=== PATIENT | male | born 1970 | race African-American/Black ===

== ENCOUNTER 2019-09-23 08:51 | Inpatient (IN) | payer MEDICAID ==
[~2019-09-23] VITALS: Ht 167.6 cm; Wt 94.7 kg
[2019-09-23 09:15] LABS: BASOPHILS 0.3 % (0-2); EOSINOPHILS 1.1 % (0-7); HEMATOCRIT 46.7 % (42.0-54.0); HEMOGLOBIN 15.7 g/dL (13.5-17.5); IMMATURE GRANULOCYTES 0.1 % (0-5); LYMPHOCYTES 40.4 % (15-50); MCH 31.6 pg (26.0-34.0); MCHC 33.6 g/dL (31.0-37.0); MEAN PLATELET VOLUME 10.1 fL (7.4-10.4); MONOCYTES 13.4 % (2-11); NEUTROPHILS 44.7 % (40-80); PLATELET COUNT 235 10x3/uL (130-400); RBC 4.97 10x6/uL (4.20-6.10); RDW 13.8 % (11.5-14.5); WBC 7.1 10x3/uL (4.8-10.8)
[2019-09-23 09:19] LABS: APPEARANCE CLEAR (CLEAR); BILIRUBIN NEGATIVE (NEGATIVE); COLOR YELLOW (YELLOW); GLUCOSE NEGATIVE (NEGATIVE); KETONE NEGATIVE (NEGATIVE); NITRITE NEGATIVE (NEGATIVE); PROTEIN NEGATIVE (NEGATIVE); SPECIFIC GRAVITY 1.015 (1.005-1.020); UROBILINOGEN NORMAL (NORMAL)
[2019-09-23 09:23] LABS: CALC OSMOLALITY 282 mosm/kg (275-300); CALCIUM 9.5 mg/dL (8.5-10.1); CARBON DIOXIDE 32.8 mmol/L (21.0-32.0); CHLORIDE - SERUM 105 mmol/L (98-107); GLUCOSE 109 mg/dL (74-106); POTASSIUM - SERUM 3.8 mmol/L (3.5-5.1); SODIUM 142 mmol/L (136-145); UREA NITROGEN 11 mg/dL (7-18); eGFR NON AFRICAN AMERICAN 85 mL/min (90-120)
[2019-09-23 09:32] LABS: ALBUMIN 3.7 g/dL (3.4-5.0); ALKALINE PHOSPHATASE 82 U/L (30-120); ALT (SGPT) 25 U/L (10-68); AMYLASE - SERUM 211 U/L (25-115); BILIRUBIN - TOTAL 0.63 mg/dL (0.2-1.3); PROTEIN - SERUM 7.9 g/dL (6.4-8.2)
[2019-09-23 09:33] LABS: LIPASE 1823 U/L (73-393); TROPONIN-I < 0.017 ng/mL (0.000-0.060)
--- NOTE | 2019-09-23 09:43 | NUR ---
PT VOICED SOME RELIEF FROM STOMACH PAIN S/P GI COCKTAIL.
--- NOTE | 2019-09-23 12:00 | NUR ---
ARRIVES TO ROOM VIA WHEELCHAIR FROM ER. AMBULATES TO BED. GAIT STEADY. ALERT AND ORIENTED X4. IV INFUSING ORDERED. REFUSE SCDs. UP AD MARY. CONTINUE ADMISSION PROCESS AND SAFETY PRECAUTIONS.
[2019-09-23] MEDS ORDERED: LISINOPRIL20 MG PO (12:06)
[2019-09-23 12:15] VITALS: BP 138/86; BMI 33.7
[2019-09-23 14:15] VITALS: BP 138/86
[2019-09-23 18:32] VITALS: BP 135/89
--- NOTE | 2019-09-23 19:26 | NUR ---
RECEIVED UP IN BED WITH EYES OPEN AND TV ON. ALERT AND ORIENTED X4. UP AD MARY TO B/R. IV TO RIGHT AC WITH NS AT 120CC/HR. DENIES ANY PAIN AT THIS TIME.
[2019-09-23 20:00] VITALS: BP 142/90
[2019-09-24] VITALS: BP 123/75
[2019-09-24 04:00] VITALS: BP 106/72
[2019-09-24 04:33] LABS: BASOPHILS 0.2 % (0-2); EOSINOPHILS 1.6 % (0-7); HEMOGLOBIN 13.2 g/dL (13.5-17.5); IMMATURE GRANULOCYTES 0.2 % (0-5); LYMPHOCYTES 41.4 % (15-50); MCH 31.2 pg (26.0-34.0); MCV 94.6 fL (80.0-100.0); MEAN PLATELET VOLUME 10.3 fL (7.4-10.4); MONOCYTES 14.1 % (2-11); NEUTROPHILS 42.5 % (40-80); PLATELET COUNT 207 10x3/uL (130-400); RBC 4.23 10x6/uL (4.20-6.10); RDW 13.8 % (11.5-14.5); WBC 5.6 10x3/uL (4.8-10.8)
[2019-09-24 04:45] LABS: ALBUMIN 2.8 g/dL (3.4-5.0); ALKALINE PHOSPHATASE 59 U/L (30-120); ALT (SGPT) 21 U/L (10-68); BILIRUBIN - TOTAL 0.69 mg/dL (0.2-1.3); CALC OSMOLALITY 280 mosm/kg (275-300); CALCIUM 7.8 mg/dL (8.5-10.1); CARBON DIOXIDE 27.7 mmol/L (21.0-32.0); CHLORIDE - SERUM 108 mmol/L (98-107); GLUCOSE 109 mg/dL (74-106); POTASSIUM - SERUM 4.1 mmol/L (3.5-5.1); PROTEIN - SERUM 6.1 g/dL (6.4-8.2); SODIUM 141 mmol/L (136-145); UREA NITROGEN 9 mg/dL (7-18); eGFR NON AFRICAN AMERICAN 85 mL/min (90-120)
[2019-09-24 04:46] LABS: AMYLASE - SERUM 78 U/L (25-115); LIPASE 179 U/L (73-393)
[2019-09-24 08:33] VITALS: Ht 167.6 cm; Wt 94.7 kg
[2019-09-24 09:54] VITALS: BP 138/87
[2019-09-24 13:00] VITALS: BP 139/77
[2019-09-24] MEDS ORDERED: CARAFATE1 G PO (14:07)
[2019-09-24] MEDS ORDERED: PROTONIX40 MG PO (14:07)
[2019-09-24 16:51] VITALS: BP 150/71
--- NOTE | 2019-09-24 16:59 | MORECARE ---
CASE MANAGEMENT DISCHARGE SUMMARY PATIENT: LOBO GRIFFIN UNIT: [id number] ADM DATE: 09/23/19 AGE: 49 : 74 SEX: M ROOM/BED: D.2104 AUTHOR: MARTA,DOC PHYSICIAN: REFERRING PHYSICIAN: ORIANA BHATIA MD DATE OF SERVICE: 09/24/19 Discharge Plan Patient Name: LOBO GRIFFIN Facility: [facility]:[place] : 1970 Planned Disposition: Home Anticipated Discharge Date: 09/24/19 Discharge Date: Expected LOS: 1 Initial Reviewer: [email or web address] Initial Review Date: 09/24/2019 Generated: 09/24/19 5:58 pm Comments DCP- Discharge Planning Updated by [email or web address]: Ritchie العراقي on 09/24/19 3:[address] Patient Name: LOBO GRIFFIN Admission Status: Elective Accout number: [id number] Admission Date: 09-23-2019 : 1970 Admission Diagnosis: Attending: ORIANA BHATIA Current LOS: 1 Anticipated DC Date: 09-24-2019 Planned Disposition: Home Primary Insurance: [place] [employer] Discharge Planning Comments: CM MET WITH PT IN ROOM TO DISCUSS DISCHARGE PLANNING AND NEEDS. PT REPORTS LIVING AT HOME INDEPENDENTLY WITH HEHIS . PT HAS NO MEDICAL EQUIPMENT AND NO OUTSIDE SERVICES ASSISTING IN THE HOME. CM DISCUSSED AVAILABILITY OF HOME HEALTH, REHAB SERVICES AND MEDICAL EQUIPMENT. PT DENIES DISCHARGE NEEDS, REPORTS HIS WILL PICK HIM UP FOR DISCHARGE HOME. DIRECTOR OF BRAND MARKETING NURSE NOTIFIED. Para Operator: Ricthie العراقي DCPIA - Discharge Planning Initial Assessment Updated by [email or web address]: Ritchie العراقي on 09/24/19 4:51 pm * Is the patient Alert and Oriented? Yes * How many steps to enter\exit or inside your home? NONE * PCP NONE * Pharmacy [facility] [address] * Preadmission Environment Home with Family * ADLs Independent * Equipment None * Other Equipment NO MEDICAL EQUIPMENT PROVIDER PREFERENCE * List name and contact numbers for known caregivers / representatives who currently or will assist patient after discharge: PIERCE GRIFFIN, SPOUSE, * Verbal permission to speak to the caregivers and representatives has been obtained from the patient. N/A * Community resources currently utilized None * Please name any agencies selected above. NONE * Additional services required to return to the preadmission environment? No * Can the patient safely return to the preadmission environment? Yes * Has this patient been hospitalized within the prior 30 days at any hospital? No Patient Name: LOBO GRIFFIN Page [id number] at 1659 All edits/amendments must be made on the electronic document DICTATION DATE: 09/24/191657 PHYSICIAN OPHTHALMOLOGIST: BENJAMIN 09/24/191657 RPT#: [id number] DC DATE: STATUS: ADM IN [facility] [address] [place] [address] END OF REPORT
--- NOTE | 2019-09-24 18:01 | NUR ---
ALERT AND ORIENTED X4. SITTING UP IN BED. DISCHARGE INSTRUCTIONS GIVEN VERBALLY AND WRITTEN. DISCHARGE PAPERS SIGNED ON CHART. DC LT AC IV TIP INTACT. ESCORT TO RIDE VIA WHEELCHAIR. REMAINS FREE FROM INJURY.
== END 2019-09-24 18:03 | disposition home or self-care (01) | DRG 440 ==
LOC: D.ER 08:51 → D.M2 10:55
PROVIDERS: Family Medicine; ADMIT Internal Medicine Nephrology; ATTEND Internal Medicine Nephrology
DX: K85.90 Acute pancreatitis without necrosis or infection, unspecified (principal); D64.9 Anemia, unspecified; I10 Essential (primary) hypertension; K21.9 Gastro-esophageal reflux disease without esophagitis; Z87.891 Personal history of nicotine dependence; Z87.11 Personal history of peptic ulcer disease